=== PATIENT | female | born 1965 | race Caucasian/White ===

== ENCOUNTER → 2023-01-13 | Outpatient (CLI) | payer OTHER, SELFPAY ==
--- NOTE | 2023-01-13 09:16 | BD_ITS ---
STUDY: DUAL ENERGY X-RAY ABSORPTIOMETRY / DXA REASON FOR EXAM: Female, 57 years old. [id number] TECHNIQUE: Bone Mineral Density (BMD) measurements of lumbar spine and bilateral hips were obtained. COMPARISON: None. FINDINGS: Lumbar Spine (L1-L4): g/cm2 (1.190) / T-score (1.3) / Z-score (2.7) Findings are suggestive of normal bone density with a low fracture risk. Left Femur Total: g/cm2 (0.823) / T-score (-1.0) / Z-score (-0.1) Left Femoral Neck: g/cm2 (0.672) / T-score (-1.6) / Z-score (-0.4) Right Femur Total: g/cm2 (0.823) / T-score (-1.0) / Z-score (-0.1) Right Femoral Neck: g/cm2 (0.672) / T-score (-1.6) / Z-score (-0.4) BD/Dexa Bone Density Study IMPRESSION: The patient is considered osteopenic as outlined below according to World [employer] Organization (WHO) criteria with a moderate fracture risk. Reference Information: The T-score is the number of standard deviations above or below the standard which is normal for young adults at their peak bone mineral density. The World Health Organization (WHO) interprets the T-scores as follows: Above -1 Normal bone density Between -1 and -2.5 Osteopenia Equal to / or below -2.5 Osteoporosis As a practical clinical guideline, osteopenia may be graded as follows: Mild -1 through -1.5 Moderate -1.6 through -2.0 Severe -2.1 through -2.4 The Z-score is the number of standard deviations above or below age-matched controls. A Z-score of less than -1.5 would be considered abnormal. References: 1. NIH Osteoporosis and Related Bone Diseases www osteo.org 2. International Society for Clinical Densitometry www iscd.org 3. National Osteoporosis Foundation www nof.org Electronically Signed: Titi Crocker MD at 9:58 EDT ,
== END | disposition home or self-care (01) ==
PROVIDERS: PCP Nurse Practitioner Family; Referring Provider Nurse Practitioner Family; Visit Provider Nurse Practitioner Family
DX: Z78.0 Asymptomatic menopausal state (principal)
CPT/HCPCS: 77080

== ENCOUNTER → 2024-11-12 | Outpatient (CLI) | payer OTHER, SELFPAY ==
--- NOTE | 2024-11-12 09:52 | US_ITS ---
PROCEDURE: THYROID (USTHY), 11/12/2024 REASON FOR EXAM: THYROID US TECHNIQUE: Grayscale and color Doppler imaging of the thyroid was performed. COMPARISON: None FINDINGS: Right lobe measures 5.2 x 1.4 x 1.6cm. Essentially homogeneous background echotexture. No abnormal vascularity. Nodules as below: *4 x 4 x 3 mm, mildly solid, mildly hypoechoic, TI-RADS 4. Left lobe measures 4.8 x 1.3 x 1.4 cm. Essentially homogeneous background echotexture. No abnormal vascularity. Nodules as below: *4 x 4 x 3 mm, cystic, not suspicious. Isthmus measures 2 mm in thickness. US/Thyroid IMPRESSION: 1. Assessment is TI-RADS 4. No nodules currently meet criteria for FNA or follo w-up. 2. Normal size gland with essentially unremarkable background echotexture. No abnormal vascularity. Management recommendations for TI-RADS 4 findings: FNA if = 1.5 cm; Follow if = 1 cm at 1, 2, 3, and 5 years. Recommendations per ACR Thyroid Imaging, Reporting and Data System (TI-RADS): Fern henning Paper of the ACR TI-RADS Committee, 2017 (https://linkinghub.elsevier.com/retrieve/pii/Q0544834723688332) Reading Location: [id number]
== END | disposition home or self-care (01) ==
PROVIDERS: PCP Nurse Practitioner Family; Referring Provider Nurse Practitioner Family; Visit Provider Nurse Practitioner Family
DX: E04.1 Nontoxic single thyroid nodule (principal)
CPT/HCPCS: 76536

== ENCOUNTER 2025-01-22 08:50 | Outpatient (CLI) | payer OTHER, SELFPAY ==
--- NOTE | 2025-01-22 08:54 | BD_ITS ---
PROCEDURE: DEXA BONE DENSITY STUDY 01/22/2025 REASON FOR EXAM: F, age 59 y/o . Postmenopausal. TECHNIQUE: DEXA BONE DENSITY STUDY COMPARISON: Prior study dated January 13, 2023. FINDINGS: BMD and T-SCORES Lumbar spine: 1.204 g/cm2, T-score 1.7 Levels: L1 through L4 Change from prior: Improvement of 5.8%. Left femoral neck: 0.716 g/cm2, T-score -1.2 Femoral neck comparison data not recommended for monitoring change. Left total hip: 0.865 g/cm2, T-score -0.6 Change from prior: Improvement of 3%. Right femoral neck: 0.679 g/cm2, T-score -1.5 Femoral neck comparison data not recommended for monitoring change. Right total hip: 0.846 g/cm2, T-score -0.8 Change from prior: Improvement of 2.8%. The World Health Organization has defined the following categories based on bone density: Normal bone density: T-score equal to or greater than -1.0 Osteopenia: T-score between -1.0 and -2.5 Osteoporosis: T-score equal to or less than -2.5 The patient does meet the pharmacological treatment recommendations for prevention of osteoporosis. BD/Dexa Bone Density Study IMPRESSION: OSTEOPENIA. Recommend follow-up as clinically warranted. Reading Location: [place] [id number]
== END 2025-01-22 23:59 | disposition home or self-care (01) ==
LOC: OPBD 08:50
PROVIDERS: PCP Nurse Practitioner Family; Referring Provider Nurse Practitioner Family; Visit Provider Nurse Practitioner Family
DX: M85.80 Other specified disorders of bone density and structure, unspecified site (principal)
CPT/HCPCS: 77080

== ENCOUNTER → 2025-05-13 | Outpatient (CLI) | payer OTHER, SELFPAY ==
[2025-05-13 12:25] LABS: Hematocrit 42.3 % (37-47); Hemoglobin 13.8 g/dL (12.0-15.0); Immature Granulocytes Count 0.010 X10^3/uL (0.0-0.0); Mean Corp Hgb Conc 32.6 g/dL (32-36); Mean Corpuscular Volume 91.8 fL (81-99); Mean Platelet Vol. 11.7 fl (6.2-12.0); NRBC Flagged by Analyzer 0 % (0-5); Platelet Count 142 K/mm3 (150-450); RBC Distribution Width CV 12.9 % (11.6-14.6); RBC Distribution Width SD 42.7 fl (35.1-43.9); Red Blood Count 4.61 M/mm3 (4.2-5.4); White Blood Count 4.3 K/mm3 (4.4-11.0)
[2025-05-13 12:36] LABS: Color, Urine Yellow (Yellow); Glucose, Dipstick Normal (Normal); Ketone-Dipstick Negative (Negative); Leukocyte Esterase-Dipstick Negative /ul (Negative); Nitrite-Dipstick Negative (Negative); Occult Blood-Urine Negative /ul (Negative); Protein-Dipstick 15 mg/dl (Negative); Specific Gravity, Urine 1.025 (1.002-1.030); Urine Bilirubin Dipstick Negative (Negative)
[2025-05-13 12:41] LABS: Creatinine, Urine (random) 229.00 mg/dL (28.00-217.00); Microalbumin,Random Urine < 12.0 mg/L (<20 mg/L)
[2025-05-13 13:08] LABS: AST(SGOT) 31 U/L (<=31); Alanine Aminotransfer ALT/SGPT 30 U/L (<=34); Albumin, Serum 4.4 g/dL (3.4-4.8); Alkaline Phosphatase 67 U/L (35-104); Anion Gap 13 (5-15); BUN 17 mg/dL (4-19); BUN/Creat Ratio 16.1 RATIO (10-20); Calcium,Total 9.5 mg/dL (7.6-11.0); Carbon Dioxide 23.8 mmol/L (21.0-32.0); Chloride 105 mmol/L (98-108); Cholesterol 154 mg/dL (<=200); Globulin 2.7 g/dL (2.2-4.2); Glucose 84 mg/dL (70-99); Low Density Lipoprotein Calc. 79 mg/dL; Potassium 4.4 mmol/L (3.3-5.1); Triglycerides 64 mg/dL; Very Low Density Lipoprotein 13 mg/dL (5-40); Vitamin D,25 Hydroxy 81.7 ng/mL (30-100); cholesterol:hdl ratio screen 2.48
== END | disposition home or self-care (01) ==
LOC: MTLAB 09:49
PROVIDERS: PCP Nurse Practitioner Family; Referring Provider Nurse Practitioner Family; Visit Provider Nurse Practitioner Family
DX: E78.49 Other hyperlipidemia (principal); N18.9 Chronic kidney disease, unspecified; N05.1 Unspecified nephritic syndrome with focal and segmental glomerular lesions; D72.819 Decreased white blood cell count, unspecified; M85.80 Other specified disorders of bone density and structure, unspecified site
CPT/HCPCS: 36415; 80053; 80061; 81002; 82043; 82306; 82570; 84443; 85025